=== PATIENT | male | born 1980 | race Two or more races ===

== ENCOUNTER 2019-08-23 23:11 | Emergency (ER) | payer BC ==
[~2019-08-23] VITALS: Ht 167.6 cm; Wt 79.4 kg
[2019-08-24] MEDS ORDERED: IV NS 0.9% 1,000 ML BAG IV ONE
--- NOTE | 2019-08-24 | NUR ---
BIBS C/O PALPITATIONS 1 HOUR REGISTERED NURSE RENAL, TO ER BED 4 AWAITING MD RIZZO
[2019-08-24 00:05] LABS: BASOPHILS % (AUTO) 0.5 % (0.0-2.0); EOSINOPHILS % (AUTO) 3.1 % (0.0-6.0); HEMATOCRIT 47 % (39-51); HEMOGLOBIN 15.6 g/dL (13.5-17.5); LYMPHOCYTES # (AUTO) 2.5 /CMM (0.8-4.8); LYMPHOCYTES % (AUTO) 27.4 % (20.0-44.0); MEAN CORPUSCULAR HGB CONC 33 g/dl (31.0-36.0); MEAN CORPUSCULAR VOLUME 87 fL (80-96); MONOCYTES # (AUTO) 0.6 /CMM (0.1-1.30); MONOCYTES % (AUTO) 6.3 % (2.0-12.0); NEUTROPHILS # (AUTO) 5.6 /CMM (1.8-8.9); NEUTROPHILS % (AUTO) 62.7 % (43.0-81.0); PLATELET COUNT (AUTO) 276 /CMM (150-450)
--- NOTE | 2019-08-24 00:05 | NUR ---
IV INITIATED LAC 18G. LABS DRAWN FROM SITE. UNIVERSITY ADMINISTRATOR AT BEDSIDE FOR COLLECTION. IV INTACT AND PATENT, PLACED ON SALINE LOCK
--- NOTE | 2019-08-24 00:10 | NUR ---
RADIOLOGY AT BEDSIDE FOR CXR
[2019-08-24 00:13] LABS: CALCIUM, SERUM 9.4 mg/dL (8.5-10.1); CARBON DIOXIDE 30 mmol/L (21-32); CHLORIDE 102 mmol/L (98-107); CREATININE 1.3 mg/dL (0.6-1.3); GLUCOSE 113 mg/dL (74-106); POTASSIUM 3.5 mmol/L (3.5-5.1); SODIUM SERUM 140 mmol/L (136-145); UREA NITROGEN, BLOOD 19 mg/dL (7-18)
[2019-08-24] MEDS ORDERED: LORAZEPAM INJ 2 MG/ML VIAL ONE (00:53)
[2019-08-24] MEDS ORDERED: KETOROLAC TROMETHAMINE INJ 30 MG/ML VIAL ONE (00:53)
[2019-08-24] MEDS ORDERED: KETOROLAC TROMETHAMINE INJ 30 MG/ML VIAL IV ONE (01:00)
[2019-08-24] MEDS ORDERED: LORAZEPAM INJ 2 MG/ML VIAL IV ONE (01:00)
--- NOTE | 2019-08-24 01:26 | NUR ---
Patient discharged to home in stable condition. Written and verbal after care instructions given. Patient verbalizes understanding of instruction.
[2019-08-24 01:27] VITALS: BP 174/114
== END 2019-08-24 01:28 | disposition home or self-care (01) ==
LOC: ER 23:11
DX: R00.2 Palpitations (principal)
CPT/HCPCS: 36415; 71045; 80048; 80305; 80307; 84484; 85025; 93005 ×2; 96374; 96375; 99285; J1885; J2060; J7030; G0480